=== PATIENT | male | born 1985 | race Hispanic/Latino ===

== ENCOUNTER 2022-12-13 15:17 | Inpatient (IN) | payer OTHER, BC ==
[~2022-12-13] VITALS: Ht 162.6 cm; Wt 82.7 kg
[2022-12-13] MEDS ORDERED: MORPHINE 4 MG SYG IM ONE (15:30)
[2022-12-13] MEDS ORDERED: ONDANSETRON 4MG INJ IVP ONE (15:30)
[2022-12-13] MEDS ORDERED: ETOMIDATE 20MG VIAL ONE (16:46)
[2022-12-13 17:01] LABS: BASOPHILS % (AUTO) 0.3 % (0.0-5.0); EOSINOPHILS % (AUTO) 0.2 % (0.0-8.0); HEMATOCRIT 45.1 % (42-54); LYMPHOCYTES % (AUTO) 10.6 % (21.0-51.0); MEAN CORPUSCULAR HEMOGLOBIN 31.6 pg (27.0-33.0); MEAN CORPUSCULAR VOLUME 90.2 fL (79-99); MONOCYTES % (AUTO) 6.6 % (3.0-13.0); NEUTROPHILS % (AUTO) 81.7 % (40.0-77.0); PLATELET COUNT (AUTO) 308 K/uL (130-400); RED CELL DISTRIBUTION WIDTH 12.6 % (11.0-15.5); WHITE BLOOD COUNT (AUTO) 18.4 K/uL (4.8-10.8)
[2022-12-13] MEDS ORDERED: PROPOFOL 1000 MG/100 ML 0 ML IV ONE (17:10)
[2022-12-13 17:12] LABS: CREATININE 1.2 mg/dL (0.5-1.5); POTASSIUM 4.8 mmol/L (3.5-5.1)
[2022-12-13 17:17] LABS: ALBUMIN 4.3 g/dL (3.5-5.0); TOTAL PROTEIN, SERUM 7.8 g/dL (6.0-8.3)
[2022-12-13] MEDS ORDERED: MORPHINE 4 MG SYG IVP ONE (17:30)
[2022-12-13] MEDS ORDERED: HYDROCODONE/ACETAMINOPHEN 5/325 MG TAB PO PRN (18:30)
[2022-12-13] MEDS: HYDROCODONE/ACETAMINOPHEN 5/325 MG TAB PO PRN (20:43)
[2022-12-13 21:50] VITALS: BP 132/74
[2022-12-14] VITALS (21 sets, daily range): BP systolic 126–144; BP diastolic 60–89
[2022-12-14] MEDS: HYDROCODONE/ACETAMINOPHEN 5/325 MG TAB PO PRN (07:37)
[2022-12-14] MEDS ORDERED: MIDAZOLAM HCL 1 MG/ML 2ML VIAL ONE (10:24)
[2022-12-14] MEDS ORDERED: FENTANYL CITRATE PF 50 MCG/1 ML 2ML VIAL ONE ×2 (10:24→11:31)
[2022-12-14] MEDS ORDERED: PROPOFOL 10 MG/ML 20ML VIAL IV ONE (10:24)
[2022-12-14] MEDS ORDERED: ROCURONIUM 10MG/1ML SYR 10 MG/ML ML ONE (10:24)
[2022-12-14] MEDS ORDERED: CEFAZOLIN SODIUM 2 GM VIAL IVPB ONE (10:52)
[2022-12-14] MEDS ORDERED: MEPERIDINE-PF 25 MG/ML SYG ONE (11:09)
[2022-12-14] MEDS ORDERED: ONDANSETRON 4MG INJ ONE (11:21)
[2022-12-14] MEDS ORDERED: GLYCOPYRROLATE 1 MG/5 ML SYRINGE ONE (11:35)
[2022-12-14] MEDS ORDERED: NEOSTIGMINE 5MG/5ML SYR IV ONE (11:36)
[2022-12-14] MEDS ORDERED: KETOROLAC 30MG VIAL (30MG/ML) ONE (12:12)
== END 2022-12-14 17:30 | disposition home or self-care (01) | DRG 505 ==
LOC: EDH 15:17 → EDHIP 19:21 → 4BH 21:52
PROVIDERS: ADMIT Surgery; ATTEND Surgery
PROC: 3E0T33Z Introduction of Anti-inflammatory into Peripheral Nerves and Plexi, Percutaneous Approach (ICD-10-PCS; 2022-12-14)
PROC: 0QSN04Z Reposition Right Metatarsal with Internal Fixation Device, Open Approach (ICD-10-PCS; principal; 2022-12-14 10:43)
PROC: 3E0T3BZ Introduction of Anesthetic Agent into Peripheral Nerves and Plexi, Percutaneous Approach (ICD-10-PCS; 2022-12-14 10:43)
DX: S93.324A Dislocation of tarsometatarsal joint of right foot, initial encounter (principal); Y93.89 Activity, other specified; Z20.822 Contact with and (suspected) exposure to COVID-19; Y92.89 Other specified places as the place of occurrence of the external cause; Y99.8 Other external cause status; V89.2XXA Person injured in unspecified motor-vehicle accident, traffic, initial encounter
CPT/HCPCS: 36415; 71101; 73100; 73610; 73630; 80053; 85025; 87635; 96372; 96374; 96375; A4606; G0378; J1885; J2175; J2250; J2270; J2405; J2704; J2710; J3010; J3490